=== PATIENT | female | born 1980 | race Two or more races ===

== ENCOUNTER 2025-07-01 13:20 | Emergency (ER) | payer MEDICAID ==
[~2025-07-01] VITALS: Ht 152.4 cm; Wt 83.9 kg
[2025-07-01 13:29] VITALS: TEMP 98.3
[2025-07-01 13:58] LABS: PLATELET COUNT (AUTO) 196 K/uL (150-450); RED BLOOD CELL COUNT(AUTO) 4.24 MIL/uL (4.0-5.2); RED CELL DISTRIBUTION WIDTH 14.3 % (11.5-15.0); WHITE BLOOD COUNT (AUTO) 7.2 K/uL (4.3-11.0)
[2025-07-01 14:05] LABS: CALCIUM, SERUM 8.8 mg/dL (8.5-10.1); CREATININE 6.3 mg/dL (0.6-1.3); SODIUM SERUM 144 mmol/L (136-145); UREA NITROGEN, BLOOD 38 mg/dL (7-18)
[2025-07-01] MEDS ORDERED: CALC667C6 PO (14:11)
[2025-07-01] MEDS ORDERED: AMLO-212 PO (14:11)
[2025-07-01 18:28] VITALS: BP 126/78; O2SAT 98
== END 2025-07-01 20:49 | disposition short-term general hospital (02) ==
LOC: ER 13:27
DX: R07.89 Other chest pain (principal); I12.0 Hypertensive chronic kidney disease with stage 5 chronic kidney disease or end stage renal disease; N18.6 End stage renal disease; Z99.2 Dependence on renal dialysis
CPT/HCPCS: 36415; 71045-TC; 80048-TC; 84484-TC; 85025-TC